=== PATIENT | female | born 1990 | race Caucasian/White ===

== ENCOUNTER 2017-12-30 15:52 | Outpatient (CLI) | payer OTHER ==
[2017-12-31 12:31] LABS: ADENOVIRUS F 40/41 NOT DETECTED (Not Detected); ASTROVIRUS NOT DETECTED (Not Detected); C. DIFFICILE (TOXIN A/B) NOT DETECTED (Not Detected); CRYPTOSPORIDIUM NOT DETECTED (Not Detected); CYCLOSPORA CAYETANENSIS NOT DETECTED (Not Detected); ENTAMOEBA HISTOLYTICA NOT DETECTED (Not Detected); GIARDIA LAMBLIA NOT DETECTED (Not Detected); ROTAVIRUS A NOT DETECTED (Not Detected); SAPOVIRUS NOT DETECTED (Not Detected); VIBRIO CHOLERAE NOT DETECTED (Not Detected)
== END 2017-12-30 15:53 ==
LOC: LAB 15:52
PROVIDERS: ATTEND Physician Assistant
DX: R11.2 Nausea with vomiting, unspecified (principal)
CPT/HCPCS: 87507

== ENCOUNTER 2018-01-28 15:54 | Outpatient (CLI) | payer OTHER ==
[2018-01-28 16:56] LABS: eGFR (Non-African) > 60
[2018-01-28 16:57] LABS: BASOPHILS % 0.5 (0.0-1.5); EOSINOPHILS % 2.1 % (0.0-6.8); MEAN CORPUSCULAR HEMOGLOBIN 29.1 pg (28.0-34.0); MONOCYTES % 4.9 % (0.0-11.0)
== END 2018-01-28 15:59 | disposition home or self-care (01) ==
LOC: LAB 15:54
PROVIDERS: ATTEND Physician Assistant
DX: R53.83 Other fatigue (principal)
CPT/HCPCS: 36415; 80053; 82652; 84439; 84443; 84481; 85025